=== PATIENT | female | born 1995 | race Caucasian/White ===

== ENCOUNTER → 2025-05-06 15:44 | Outpatient (REF) | payer BC, SELFPAY | LOC: PNTC 15:44 | PROVIDERS: ATTENDING PHYSICIAN Student in an Organized Health Care Education/Training Program | DX: Z36.82 Encounter for antenatal screening for nuchal translucency (principal); Z36.0 Encounter for antenatal screening for chromosomal anomalies | CPT/HCPCS: 76801; 76813 ==